=== PATIENT | male | born 1985 | race Caucasian/White ===

== ENCOUNTER 2017-11-01 19:54 | Emergency (ER) | payer MEDICAID | END 2017-11-01 20:00 | disposition home or self-care (01) | LOC: E/R 20:00 | DX: Z48.01 Encounter for change or removal of surgical wound dressing (principal) | CPT/HCPCS: 99281; Z7502 ==

== ENCOUNTER 2017-11-11 12:25 | Emergency (ER) | payer MEDICAID | END 2017-11-11 13:00 | disposition home or self-care (01) | LOC: E/R 12:25 | DX: Z48.02 Encounter for removal of sutures (principal); Z87.891 Personal history of nicotine dependence | CPT/HCPCS: 99281; Z7502 ==